=== PATIENT | female | born 1945 | race Caucasian/White ===

== ENCOUNTER 2019-10-12 06:30 | Day surgery (SDC) | payer BC ==
[2019-10-05 09:54] LABS: CLARITY,URINE CLOUDY (Clear); COLOR,URINE YELLOW (Yellow); GLUCOSE, URINE NEGATIVE (Neg); KETONES,URINE NEGATIVE (Neg); LEUKOCYTE ESTERASE ,URINE MODERATE (Neg); NITRITES, URINE NEGATIVE (Neg); OCCULT BLOOD,URINE NEGATIVE (Neg); PROTEIN,URINE NEGATIVE (Neg); UROBILINOGEN,URINE 0.2 E.U/dL (0.2-1.0)
[2019-10-05 09:56] LABS: BASOPHILS # (AUTO) 0.1 X10'3 (0-0.2); BASOPHILS % (AUTO) 0.8 % (0-1); EOSINOPHILS # (AUTO) 0.2 X10'3 (0-0.9); EOSINOPHILS % (AUTO) 3.1 % (0-6); LYMPHOCYTES # (AUTO) 3.3 X10'3 (1.1-4.8); MEAN CORPUSCULAR HEMOGLOBIN 31.2 PG (27.0-31.0); MEAN CORPUSCULAR HGB CONC 33.1 g/dL (33.0-36.5); MEAN CORPUSCULAR VOLUME 94.4 FL (78-98); MEAN PLATELET VOLUME 8.4 FL (7.4-10.4); MONOCYTES # (AUTO) 0.6 X10'3 (0-0.9); MONOCYTES % (AUTO) 8.1 % (2-12); NEUTROPHILS # (AUTO) 3.4 X10'3 (1.8-7.7); PRE OP HEMOGLOBIN 14.2 g/dL (12.0-16.0); PRE OP PLATELET COUNT 225 X10'3 (140-440); RED BLOOD COUNT 4.55 X10'6 (4.20-5.60); RED CELL DISTRIBUTION WIDTH 13.5 % (11.5-14.5)
[2019-10-05 09:59] LABS: UA COLLECTION TYPE CLN CATCH MIDSTREAM
[2019-10-05 10:02] LABS: ALBUMIN/GLOBULIN RATIO 1.3 (1.1-1.5); ALKALINE PHOSPHATASE 61 IU/L (46-116); BLOOD UREA NITROGEN 13 MG/DL (7-18); BUN/CREATININE RATIO 13.1 (6.6-38.0); CHLORIDE 106 MMOL/L (99-107); CREATININE 0.99 MG/DL (0.40-0.90); PRE OP ALT 16 U/L (30-65); PRE OP ANION GAP 11 (8-16); PRE OP AST 12 U/L (10-37); PRE OP BILIRUB, TOTAL 0.6 MG/DL (0.0-1.0); PRE OP GLUCOSE 118 MG/DL (70-104); PRE OP SODIUM 146 MMOL/L (135-145); TOTAL CARBON DIOXIDE 29.4 MMOL/L (24-32); eGFR 55 ML/MIN
[2019-10-05 10:03] LABS: BACTERIA,URINE 2+ /HPF (Neg); MUCUS STRANDS MODERATE /LPF (Neg); SQUAMOUS EPITHELIAL CELL,UR MANY /LPF (FEW)
[2019-10-05 10:04] LABS: RBC,URINE 0-2 /HPF (0-2); TRANSITIONAL EPI CELLS,URINE FEW /HPF; WBC,URINE 30-50 /HPF (0-4)
[2019-10-05 10:05] LABS: HYALINE CASTS 0-3 /LPF (NEGATIVE)
[2019-10-12] VITALS (8 sets, daily range): BP systolic 137–160; BP diastolic 71–87
[~2019-10-12] VITALS: Ht 162.6 cm; Wt 76.2 kg
[~2019-10-12 06:30] MED LIST: ASPI-10 PO; ATOR10TA70 PO; DULO60CA65 PO; GABA300T25 PO; LEVO75TA7 PO; LISI2.5T2 PO; METF-438 PO; cefazolin/dext.iso 2gm/50ml 50 ML IV ONE; famotidine 20mg tablet PO ONE; ringers solution, lacted 1,000 ML IV SCH
[2019-10-12 10:23] LABS: CLARITY,URINE SLIGHTLY CLOUDY (Clear); COLOR,URINE YELLOW (Yellow); GLUCOSE, URINE NEGATIVE (Neg); KETONES,URINE NEGATIVE (Neg); LEUKOCYTE ESTERASE ,URINE MODERATE (Neg); NITRITES, URINE NEGATIVE (Neg); OCCULT BLOOD,URINE TRACE-LYSED (Neg); PROTEIN,URINE NEGATIVE (Neg); UROBILINOGEN,URINE 0.2 E.U/dL (0.2-1.0)
[2019-10-12] MEDS ORDERED: BUPIVAcaine/PF 2.5 mg/ml (0.25%) 30ml vial ONE (10:23)
[2019-10-12] MEDS ORDERED: bacitracin 15gm ointment TP ONE (10:23)
[2019-10-12 10:26] LABS: UA COLLECTION TYPE CLN CATCH MIDSTREAM
[2019-10-12 10:33] LABS: CAL OXALATE CRYSTALS 2+ /HPF (NEGATIVE); MUCUS STRANDS NONE SEEN /LPF (Neg); RBC,URINE 0-2 /HPF (0-2); SQUAMOUS EPITHELIAL CELL,UR MODERATE /LPF (FEW); WBC,URINE TNTC /HPF (0-4)
[2019-10-12 10:34] LABS: BACTERIA,URINE 3+ /HPF (Neg)
[2019-10-12] MEDS ORDERED: fentaNYL/PF 50MCG/1 ML 2ML syringe ONE (10:37)
[2019-10-12] MEDS ORDERED: propofol inj 20 ML IV ONE (11:08)
[2019-10-12] MEDS ORDERED: ondansetron/PF 4mg/2ml inj ONE (11:08)
[2019-10-12] MEDS ORDERED: glycopyrrolate 0.2mg/ml inj ONE (11:08)
[2019-10-12] MEDS ORDERED: naloxone 0.4 mg/ml inj ONE (11:08)
[2019-10-12] MEDS ORDERED: LIDOcaine 2% (20mg/ml) 5ml vial ONE (11:08)
[2019-10-12] MEDS ORDERED: morphine 2 MG/ML inj. syringe IV PRN (11:15)
[2019-10-12] MEDS ORDERED: ringers solution, lacted 1,000 ML IV SCH (11:15)
[2019-10-12] MEDS ORDERED: ondansetron/PF 4mg/2ml inj IV PRN (11:15)
--- NOTE | 2019-10-12 11:15 | NUR ---
Received from OR via BED , accompanied by Anesthesiologist DR VENEGAS and report given by Anesthesiolgist. PATIENT WAKING UP, DENIES PAIN, V/S WNL, NEUROVASCULAR CHECKS INTACT, 20G PIV LUE, SCD ON, BANDAID TO LAP SIGHT OF ABDOMEN CDI.
[2019-10-12] MEDS ORDERED: traMADol 50MG tablet PO ONE (11:55)
--- NOTE | 2019-10-12 12:15 | NUR ---
PATIENT A&OX4, DENIES PAIN, V/S WNL, NEUROVASCULAR CHECKS INTACT, 20G PIV LUE D/C, SCD OFF, BANDAID TO LAP SIGHT OF ABDOMEN CDI. I HAVE REVIEWED D/C INSTRUCTIONS WITH PATIENT AND FAMILY AND THEY HAVE VERBALIZED UNDERSTANDING. PATIENT D/C HOME WITH ALL BELONGINGS AND FAMILY GAVE TRANSPORT HOME.
[2019-10-12] MEDS ORDERED: sevoflurane 250ml liquid IH ONE (16:31)
== END 2019-10-12 12:15 | disposition home or self-care (01) ==
LOC: PAS 06:30
PROVIDERS: ATTEND Surgery
DX: K42.9 Umbilical hernia without obstruction or gangrene (principal); E78.5 Hyperlipidemia, unspecified; E11.9 Type 2 diabetes mellitus without complications; Z98.51 Tubal ligation status; Z98.890 Other specified postprocedural states; Z88.2 Allergy status to sulfonamides; Z87.891 Personal history of nicotine dependence; Z79.84 Long term (current) use of oral hypoglycemic drugs; Z79.899 Other long term (current) drug therapy; Z91.030 Bee allergy status; Z98.49 Cataract extraction status, unspecified eye; Z85.850 Personal history of malignant neoplasm of thyroid; Z11.59 Encounter for screening for other viral diseases
CPT/HCPCS: 36415; 49585; 80053; 81001; 82948; 85025; 87088; 93005; J2001; J2270; J2310; J2405; J2704; J3010; J3490; J7120; U0003; A4215; A4618; A7000

== ENCOUNTER 2021-04-23 05:52 | Emergency (ER) | payer BC ==
[~2021-04-23] VITALS: Ht 162.6 cm; Wt 85.5 kg
[~2021-04-23 05:52] MED LIST changes: +LISI2.5T14 PO; -LISI2.5T2 PO; -cefazolin/dext.iso 2gm/50ml 50 ML IV ONE; -famotidine 20mg tablet PO ONE; -ringers solution, lacted 1,000 ML IV SCH
[2021-04-23 06:31] VITALS: BP 118/56
[2021-04-23] MEDS ORDERED: normal saline 1000ML IV soln IVB ONE (07:00)
[2021-04-23 07:59] LABS: BASOPHILS % (AUTO) 0.3 % (0-1); EOSINOPHILS # (AUTO) 0.1 X10'3 (0-0.9); EOSINOPHILS % (AUTO) 0.4 % (0-6); HEMATOCRIT 44.5 % (35.0-45.0); HEMOGLOBIN 14.7 g/dl (12.0-16.0); LYMPHOCYTES # (AUTO) 1.5 X10'3 (1.1-4.8); LYMPHOCYTES % (AUTO) 9.5 % (21-51); MEAN CORPUSCULAR HEMOGLOBIN 30.1 PG (27.0-31.0); MEAN CORPUSCULAR HGB CONC 33.1 g/dL (33.0-36.5); MEAN CORPUSCULAR VOLUME 90.7 FL (78-98); MEAN PLATELET VOLUME 8.6 FL (7.4-10.4); MONOCYTES # (AUTO) 1.4 X10'3 (0-0.9); MONOCYTES % (AUTO) 8.8 % (2-12); NEUTROPHILS # (AUTO) 12.6 X10'3 (1.8-7.7); PLATELET COUNT 203 X10'3 (140-440); RED BLOOD COUNT 4.91 X10'6 (4.20-5.60); RED CELL DISTRIBUTION WIDTH 13.1 % (11.5-14.5); WHITE BLOOD COUNT 15.5 X10'3 (4.5-11.0)
[2021-04-23 08:22] LABS: ALANINE AMINOTRANSFERASE 25 U/L (12-78); ALBUMIN/GLOBULIN RATIO 1.2 (1.1-1.5); ALKALINE PHOSPHATASE 101 IU/L (46-116); ANION GAP 15 (8-16); ASPARTATE AMINO TRANSFERASE 16 U/L (10-37); BILIRUBIN,TOTAL 0.5 MG/DL (0.1-1.0); BLOOD UREA NITROGEN 22 MG/DL (7-18); BUN/CREATININE RATIO 18.8 (6.6-38.0); CALCIUM 9.2 MG/DL (8.5-10.1); CHLORIDE 102 MMOL/L (99-107); CREATININE 1.17 MG/DL (0.40-0.90); GLUCOSE 361 MG/DL (70-104); LIPASE 151 U/L (73-393); POTASSIUM 4.4 MMOL/L (3.5-5.1); SODIUM 140 MMOL/L (135-145); TOTAL CARBON DIOXIDE 23.2 MMOL/L (24-32); TOTAL PROTEIN 7.3 G/DL (6.4-8.2); eGFR 45 ML/MIN
--- NOTE | 2021-04-23 09:21 | NUR ---
PT VERBALLY AGGRESSIVE TOWARDS STAFF DEMANDING TO LEAVE. INFORMED BOTH AND THE PT THAT THE URINALYSIS IS STILL PENDING AND THAT IS WHAT WE ARE WAITING FOR. PT CONTINUED TO REQUEST TO LEAVE AND AGREED TO STAY 30 MORE MINUTES. ED CHARGE ABNER AND ED MD MOJICA MADE AWARE OF SITUATION
[2021-04-23 09:22] LABS: CLARITY,URINE SLIGHTLY CLOUDY (Clear); COLOR,URINE YELLOW (Yellow); GLUCOSE, URINE >=1000 mg/dl (Neg); KETONES,URINE 15 mg/dl (Neg); LEUKOCYTE ESTERASE ,URINE TRACE (Neg); NITRITES, URINE NEGATIVE (Neg); OCCULT BLOOD,URINE NEGATIVE (Neg); PH,URINE 5.5 (4.8-8.0); PROTEIN,URINE 30 mg/dl (Neg); UROBILINOGEN,URINE 0.2 E.U/dL (0.2-1.0)
[2021-04-23 09:25] LABS: UA COLLECTION TYPE CLN CATCH MIDSTREAM
[2021-04-23 09:28] LABS: BACTERIA,URINE 1+ /HPF (Neg); HYALINE CASTS 0-3 /LPF (NEGATIVE); RBC,URINE NONE SEEN /HPF (0-2); SQUAMOUS EPITHELIAL CELL,UR FEW /LPF (FEW)
[2021-04-23] MEDS ORDERED: cephalexin 500mg capsule PO ONE (09:40)
[2021-04-23] MEDS ORDERED: CEPH-585 PO (09:44)
[2021-04-23 10:29] LABS: COARSE GRANULAR CAST 0-3 /LPF (NEGATIVE)
== END 2021-04-23 10:00 | disposition home or self-care (01) ==
LOC: ER 05:52
DX: N39.0 Urinary tract infection, site not specified (principal); R19.7 Diarrhea, unspecified; E11.9 Type 2 diabetes mellitus without complications; F17.200 Nicotine dependence, unspecified, uncomplicated; Z90.89 Acquired absence of other organs; Z88.2 Allergy status to sulfonamides; Z79.82 Long term (current) use of aspirin; Z79.899 Other long term (current) drug therapy; Z79.2 Long term (current) use of antibiotics
CPT/HCPCS: 36415; 71045; 80053; 81001; 83690; 85025; 87088; 93005; 99285; J7030

== ENCOUNTER 2022-09-16 16:46 | Emergency (ER) | payer BC, MEDICARE ==
[~2022-09-16] VITALS: Ht 162.6 cm; Wt 82.7 kg
[2022-09-16 17:16] LABS: BASOPHILS % (AUTO) 0.6 % (0-1); EOSINOPHILS % (AUTO) 0.5 % (0-6); HEMATOCRIT 44.2 % (35.0-45.0); HEMOGLOBIN 14.7 g/dl (12.0-16.0); LYMPHOCYTES # (AUTO) 1.9 X10'3 (1.1-4.8); LYMPHOCYTES % (AUTO) 33.8 % (21-51); MEAN CORPUSCULAR HEMOGLOBIN 30.4 PG (27.0-31.0); MEAN CORPUSCULAR HGB CONC 33.3 g/dL (33.0-36.5); MEAN CORPUSCULAR VOLUME 91.4 FL (78-98); MEAN PLATELET VOLUME 8.9 FL (7.4-10.4); MONOCYTES # (AUTO) 0.4 X10'3 (0-0.9); MONOCYTES % (AUTO) 7.9 % (2-12); NEUTROPHILS # (AUTO) 3.2 X10'3 (1.8-7.7); NEUTROPHILS % (AUTO) 57.2 % (42-75); PLATELET COUNT 189 X10'3 (140-440); RED BLOOD COUNT 4.83 X10'6 (4.20-5.60); RED CELL DISTRIBUTION WIDTH 12.7 % (11.5-14.5); WHITE BLOOD COUNT 5.5 X10'3 (4.5-11.0)
[2022-09-16 17:32] LABS: ALANINE AMINOTRANSFERASE 32 U/L (12-78); ALBUMIN 3.9 G/DL (3.4-5.0); ALBUMIN/GLOBULIN RATIO 1.1 (1.1-1.5); ALKALINE PHOSPHATASE 84 IU/L (46-116); ANION GAP 15 (8-16); ASPARTATE AMINO TRANSFERASE 21 U/L (10-37); BILIRUBIN,TOTAL 0.5 MG/DL (0.1-1.0); BLOOD UREA NITROGEN 12 MG/DL (7-18); BUN/CREATININE RATIO 9.8 (10.0-20.0); CALCIUM 8.6 MG/DL (8.5-10.1); CHLORIDE 102 MMOL/L (99-107); CREATININE 1.22 MG/DL (0.40-0.90); GLUCOSE 254 MG/DL (70-104); POTASSIUM 3.8 MMOL/L (3.5-5.1); SODIUM 142 MMOL/L (135-145); TOTAL PROTEIN 7.3 G/DL (6.4-8.2); eGFR 43 ML/MIN
[2022-09-16] MEDS ORDERED: DULO30CA52 PO (17:36)
[2022-09-16] MEDS ORDERED: GABA-530 PO (17:36)
[2022-09-16] MEDS ORDERED: LEVO88TA2 PO (17:36)
[2022-09-16] MEDS ORDERED: ATOR20TA66 PO (17:37)
[2022-09-16 17:54] VITALS: BP 114/55
[2022-09-16] MEDS ORDERED: normal saline 1000ML IV soln IVB ONE (19:25)
--- NOTE | 2022-09-16 20:17 | NUR ---
PT REQUESTED TO LEAVE THE ER. INFORMED AMA PAPERS SIGNED IV DC'D DRESSING APPLIED PT LEAVING AMA
== END 2022-09-16 20:18 | disposition left against medical advice (07) ==
LOC: ER 16:47
DX: R42 Dizziness and giddiness (principal); R53.1 Weakness; I11.9 Hypertensive heart disease without heart failure; E11.9 Type 2 diabetes mellitus without complications; E03.9 Hypothyroidism, unspecified; Z88.2 Allergy status to sulfonamides; Z79.899 Other long term (current) drug therapy; Z79.1 Long term (current) use of non-steroidal anti-inflammatories (NSAID)
CPT/HCPCS: 36415; 70450; 71045; 80053; 83880; 84484; 85025; 93005; 99285; J7030

== ENCOUNTER 2022-09-22 19:06 | Emergency (ER) | payer MEDICARE ==
[~2022-09-22] VITALS: Ht 162.6 cm; Wt 63.6 kg
[~2022-09-22 19:06] MED LIST changes: -ATOR10TA70 PO; +ATOR20TA66 PO; +DULO30CA52 PO; -DULO60CA65 PO; +GABA-530 PO; -GABA300T25 PO; -LEVO75TA7 PO; +LEVO88TA2 PO
[2022-09-22] MEDS ORDERED: normal saline 1000ML IV soln IV ONE (19:20)
[2022-09-22 19:35] LABS: BASOPHILS # (AUTO) 0.1 X10'3 (0-0.2); BASOPHILS % (AUTO) 0.7 % (0-1); EOSINOPHILS % (AUTO) 0 % (0-6); HEMATOCRIT 45.7 % (35.0-45.0); HEMOGLOBIN 15.6 g/dl (12.0-16.0); LYMPHOCYTES % (AUTO) 13.4 % (21-51); MEAN CORPUSCULAR HEMOGLOBIN 30.9 PG (27.0-31.0); MEAN CORPUSCULAR HGB CONC 34.1 g/dL (33.0-36.5); MEAN CORPUSCULAR VOLUME 90.7 FL (78-98); MEAN PLATELET VOLUME 8.8 FL (7.4-10.4); MONOCYTES # (AUTO) 0.4 X10'3 (0-0.9); NEUTROPHILS # (AUTO) 5.8 X10'3 (1.8-7.7); NEUTROPHILS % (AUTO) 80.9 % (42-75); PLATELET COUNT 265 X10'3 (140-440); RED BLOOD COUNT 5.04 X10'6 (4.20-5.60); RED CELL DISTRIBUTION WIDTH 12.6 % (11.5-14.5); WHITE BLOOD COUNT 7.2 X10'3 (4.5-11.0)
[2022-09-22 19:48] LABS: ALANINE AMINOTRANSFERASE 20 U/L (12-78); ALBUMIN 3.5 G/DL (3.4-5.0); ALBUMIN/GLOBULIN RATIO 0.8 (1.1-1.5); ALKALINE PHOSPHATASE 78 IU/L (46-116); ANION GAP 15 (8-16); ASPARTATE AMINO TRANSFERASE 28 U/L (10-37); BILIRUBIN,TOTAL 0.8 MG/DL (0.1-1.0); BLOOD UREA NITROGEN 11 MG/DL (7-18); BUN/CREATININE RATIO 11.2 (10.0-20.0); CALCIUM 8.3 MG/DL (8.5-10.1); CHLORIDE 93 MMOL/L (99-107); CREATININE 0.98 MG/DL (0.40-0.90); GLUCOSE 279 MG/DL (70-104); SODIUM 133 MMOL/L (135-145); TOTAL CARBON DIOXIDE 25.1 MMOL/L (24-32); TOTAL PROTEIN 7.8 G/DL (6.4-8.2); eGFR 55 ML/MIN
--- NOTE | 2022-09-22 19:50 | NUR ---
Attempted to straight cath patient to collect clean catch urine specimen, upon attempt to advance catheter patient closed legs and said "no no no we're done". Despite efforts to ease patients pain and concern for procedure, patient continued to refuse. MD made aware of unsuccessful attempt and ultimate refusal.
[2022-09-22 19:55] LABS: MAGNESIUM 1.8 MG/DL (1.5-2.4)
[2022-09-22 19:59] LABS: POTASSIUM 3.7 MMOL/L (3.5-5.1)
[2022-09-22] MEDS ORDERED: normal saline 1000ML IV soln IVB ONE (20:25)
[2022-09-22] MEDS ORDERED: proCHLORperazine 10 MG/2 ml inj IV ONE (20:55)
[2022-09-22 21:00] VITALS: BP 155/70
[2022-09-22 21:21] LABS: CLARITY,URINE SLIGHTLY CLOUDY (Clear); COLOR,URINE YELLOW (Yellow); GLUCOSE, URINE NEGATIVE (Neg); KETONES,URINE 40 mg/dl (Neg); LEUKOCYTE ESTERASE ,URINE SMALL (Neg); NITRITES, URINE NEGATIVE (Neg); OCCULT BLOOD,URINE NEGATIVE (Neg); PROTEIN,URINE 30 mg/dl (Neg); UROBILINOGEN,URINE 0.2 E.U/dL (0.2-1.0)
[2022-09-22 21:29] LABS: UA COLLECTION TYPE CLN CATCH MIDSTREAM
[2022-09-22 21:31] LABS: BACTERIA,URINE 1+ /HPF (Neg); MUCUS STRANDS FEW /LPF (Neg); RBC,URINE 0-2 /HPF (0-2); SQUAMOUS EPITHELIAL CELL,UR FEW /LPF (FEW); TRANSITIONAL EPI CELLS,URINE FEW /HPF; WBC,URINE 20-30 /HPF (0-4)
[2022-09-22 21:32] LABS: WBC CLUMPS,URINE FEW /HPF (NEGATIVE)
--- NOTE | 2022-09-22 21:35 | NUR ---
po challenge passed. drank 8oz h2o with no difficulties or distress informed
--- NOTE | 2022-09-22 22:12 | NUR ---
iv dc'd pt being discharged
== END 2022-09-22 22:14 | disposition home or self-care (01) ==
LOC: ER 19:06
DX: R42 Dizziness and giddiness (principal); R11.2 Nausea with vomiting, unspecified; R53.1 Weakness; E86.0 Dehydration; I11.9 Hypertensive heart disease without heart failure; E11.9 Type 2 diabetes mellitus without complications; E03.9 Hypothyroidism, unspecified; Z90.49 Acquired absence of other specified parts of digestive tract; Z88.2 Allergy status to sulfonamides; Z79.899 Other long term (current) drug therapy; Z79.1 Long term (current) use of non-steroidal anti-inflammatories (NSAID); Z79.84 Long term (current) use of oral hypoglycemic drugs
CPT/HCPCS: 36415; 70450; 71045; 80053; 81001; 83605; 83735; 83880; 84145; 84484; 85025; 87040; 87088; 93005; 96361; 96374; 99285; J0780; J7030; A4353